=== PATIENT | male | born 1990 | race Two or more races ===

== ENCOUNTER 2021-08-07 09:13 | Outpatient (CLI) | payer SELFPAY ==
[2021-08-07 15:32] LABS: BASOPHILS % (AUTO) 0.5 %; EOSINOPHILS # (AUTO) 0.2 10^3/uL (0.0-0.7); EOSINOPHILS % (AUTO) 3.2 %; HCT - HEMATOCRIT 46.2 % (42.0-52.0); HGB - HEMOGLOBIN 15.2 g/dL (14.0-18.0); LYMPHOCYTES # (AUTO) 1.7 10^3/uL (1.5-3.5); LYMPHOCYTES % (AUTO) 30.9 %; MEAN CORPUSCULAR HEMOGLOBIN 28.6 pg (27.0-31.0); MEAN CORPUSCULAR HGB CONC 32.9 g/dL (32.0-36.0); MONOCYTES # (AUTO) 0.3 10^3/uL (0.0-1.0); MONOCYTES % (AUTO) 5.4 %; NEUTROPHILS # (AUTO) 3.3 10^3/uL (1.5-6.6); NEUTROPHILS % (AUTO) 59.8 %; PLT - PLATELET COUNT 170 10^3/uL (130-450); RED BLOOD COUNT 5.31 10^6/uL (4.70-6.10); RED CELL DISTRIBUTION WIDTH 13.4 % (12.0-15.0); WHITE BLOOD COUNT 5.6 x10^3/uL (4.8-10.8)
[2021-08-07 15:51] LABS: ALBUMIN 4.7 g/dL (3.2-5.5); ALBUMIN/GLOBULIN RATIO 1.5 (1.0-2.2); BILIRUBIN,TOTAL 1.1 mg/dL (0.2-1.0); CALCIUM 9.5 mg/dL (8.5-10.3); CREATININE 0.8 mg/dL (0.6-1.2); POTASSIUM 3.9 mmol/L (3.5-5.0); TOTAL PROTEIN 7.8 g/dL (6.7-8.2)
[2021-08-07 16:08] LABS: THYROID STIMULATING HORMONE 1.14 uIU/mL (0.34-5.60)
[2021-08-07 18:42] LABS: ESTIMATED AVERAGE GLUCOSE 108 mg/dL (70-100); HEMOGLOBIN A1c% 5.4 % (4.27-6.07)
== END 2021-08-07 09:14 | disposition home or self-care (01) ==
LOC: LAB.S 09:13
PROVIDERS: ATTEND Naturopath
DX: F41.9 Anxiety disorder, unspecified (principal); R13.10 Dysphagia, unspecified; E05.90 Thyrotoxicosis, unspecified without thyrotoxic crisis or storm; E16.2 Hypoglycemia, unspecified
CPT/HCPCS: 36415; 80053; 83036; 84443; 85025

== ENCOUNTER 2021-08-10 13:54 | Outpatient (CLI) | payer SELFPAY ==
[2021-08-16 11:49] LABS: PATHOLOGIST SLIDE COMMENTS SEE SEPARATE REPORT
== END 2021-08-10 13:55 | disposition home or self-care (01) ==
LOC: LAB.S 13:54
PROVIDERS: ATTEND Naturopath
DX: R13.10 Dysphagia, unspecified (principal); E05.90 Thyrotoxicosis, unspecified without thyrotoxic crisis or storm; E16.2 Hypoglycemia, unspecified
CPT/HCPCS: 36415; 81599; 83615; 83625; 84439

== ENCOUNTER 2022-03-15 11:54 | Emergency (ER) | payer SELFPAY ==
[2022-03-15 12:24] LABS: BASOPHILS % (AUTO) 0.4 %; EOSINOPHILS # (AUTO) 0.2 10^3/uL (0.0-0.7); EOSINOPHILS % (AUTO) 2.4 %; HCT - HEMATOCRIT 47.1 % (42.0-52.0); HGB - HEMOGLOBIN 15.8 g/dL (14.0-18.0); LYMPHOCYTES # (AUTO) 1.5 10^3/uL (1.5-3.5); MEAN CORPUSCULAR HGB CONC 33.5 g/dL (32.0-36.0); MEAN CORPUSCULAR VOLUME 83.5 fL (80.0-94.0); MEAN PLATELET VOLUME 12.8 fL (7.4-11.4); MONOCYTES # (AUTO) 0.3 10^3/uL (0.0-1.0); MONOCYTES % (AUTO) 4.8 %; NEUTROPHILS # (AUTO) 4.9 10^3/uL (1.5-6.6); NEUTROPHILS % (AUTO) 70.1 %; PLT - PLATELET COUNT 173 10^3/uL (130-450); RED BLOOD COUNT 5.64 10^6/uL (4.70-6.10); RED CELL DISTRIBUTION WIDTH 12.8 % (12.0-15.0); WHITE BLOOD COUNT 6.9 x10^3/uL (4.8-10.8)
--- NOTE | 2022-03-15 12:28 | ED Physician Documentation ---
PD HPI ABD PAIN - Stated complaint Stated Complaint: ABD/THROAT PX/NAUSEA - Chief complaint Chief Complaint: Abd Pain - History obtained from History obtained from: Patient - History of Present Illness Timing - onset: How many months ago (The patient has had couple of months of intermittent upper abdominal pain worse with eating. More notable with fatty foods. 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 He states he had 2 weeks of treatment but not sure what it was. Continues with epigastric pain) Timing - details: Gradual onset, Still present (worse the past week.), Waxing and waning Quality: Aching, Pain, Other (burning) Location: Epigastric Radiation: Chest (lower substernal) Worsened by: Eating (yves fatty foods and also spicy foods.) Associated symptoms: Nausea, Loss of appetite. No: Fever, Vomiting, Hematemesis, Constipation, Melena, Weight loss Similar symptoms before: Has not had sx before Recently seen: Clinic (seen by ? naturopathic provider and Dx with sounds like gastritis and possible h.pylori.) Review of Systems Constitutional: denies: Fever, Chills Nose: denies: Rhinorrhea / runny nose, Congestion Throat: denies: Sore throat Respiratory: denies: Cough GI: reports: Abdominal Pain, Nausea. denies: Vomiting, Diarrhea, Bloody / black stool : denies: Dysuria, Frequency Neurologic: denies: Generalized weakness Psychiatric: reports: Anxiety. denies: Depressed Endocrine: denies: Weight loss Immunocompromised: denies: Immunocompromised PD PAST MEDICAL HISTORY - Past Medical History Cardiovascular: None Respiratory: None Endocrine/Autoimmune: None - Present Medications Home Medications: Ambulatory Orders Medication Instructions Recorded Confirmed HYDROcod/ACETAM 5/325 [[place] 5/325] 1 ea PO Q6H PRN #15 tablet 03/15/22 Ondansetron Odt [Zofran] 4 mg TL Q6H PRN #15 tablet 03/15/22 Pantoprazole [Protonix] 40 mg PO DAILY 30 Days #30 tablet 03/15/22 Sucralfate [Carafate] 1 gm PO ACHS #28 tablet 03/15/22 - Allergies Allergies/Adverse Reactions: Allergies Allergy/AdvReac Type Severity Reaction Status Date / Time No Known Drug Allergies Allergy Verified 03/15/22 12:07 PD ED PE NORMAL - Vitals Vital signs reviewed: Yes - General General: Alert and oriented X 3, No acute distress, Well developed/nourished - HEENT HEENT: Pharynx benign - Neck Neck: Supple, no meningeal sign, No adenopathy - Cardiac Cardiac: RRR, No murmur - Respiratory Respiratory: No respiratory distress, Clear bilaterally - Abdomen Abdomen: Normal bowel sounds, Soft, Non distended, No organomegaly, Other (moderate tender epigastric to RUQ without guarding nor percussion tenderness. Lower abd not tender. ) - Derm Derm: Normal color, Warm and dry - Neuro Neuro: Alert and oriented X 3, No motor deficit, Normal speech Results - Vitals Vitals: Vital Signs - 24 hr 03/15/22 03/15/22 03/15/22 12:08 13:33 15:07 Temperature 36.5 C 37.4 C Heart Rate 90 90 82 Respiratory 16 16 16 Rate Blood Pressure 132/71 H 127/77 123/77 O2 Saturation 98 98 97 Oxygen O2 Source Room air - Labs Labs: Laboratory Tests 03/15/22 03/15/22 03/15/22 12:18 12:18 12:22 WBC 6.9 RBC 5.64 Hgb 15.8 Hct 47.1 MCV 83.5 MCH 28.0 MCHC 33.5 RDW 12.8 Plt Count 173 MPV 12.8 H Neut # (Auto) 4.9 Lymph # (Auto) 1.5 [place] # (Auto) 0.3 Eos # (Auto) 0.2 Baso # (Auto) 0.0 Absolute Nucleated RBC 0.00 Nucleated RBC % 0.0 Sodium 137 Potassium 3.5 Chloride 103 Carbon Dioxide 24 Anion Gap 10.0 BUN 12 Creatinine 0.8 Estimated GFR (MDRD) 113 Glucose 115 H Calcium 9.4 Total Bilirubin 1.1 H AST 33 ALT 59 Alkaline Phosphatase 78 Total Protein 8.4 H Albumin 5.1 Globulin 3.3 Albumin/Globulin Ratio 1.5 Lipase 28 Urine Color YELLOW Urine Clarity CLEAR Urine pH 6.0 Ur Specific [place] 1.020 Urine Protein NEGATIVE Urine Glucose (UA) NEGATIVE Urine Ketones 40 H Urine Occult Blood TRACE-INTA Urine Nitrite NEGATIVE Urine Bilirubin NEGATIVE Urine Urobilinogen 0.2 (NORMAL) Ur Leukocyte Esterase NEGATIVE Ur Microscopic Review NOT INDICATED Urine Culture Comments NOT INDICATED - Rads (name of study) upper abd U/S Radiology: Prelim report reviewed (normal gallbladder (some polyps incidental), no acute process. ), See rad report PD MEDICAL DECISION MAKING - ED course Complexity details: reviewed results (normal glalbladder and labs. Presume gastritis/ulcer. Consider h.pylori. He has appt with GI in few weeks. He did not have to have BM in ER, so did not get stool test here. ), considered differential (Sounds like gastritis and reflux although consider pancreatic or gallbladder. Can get labs and ultrasound. Blood test for presumed H. pylori do would be inaccurate at this point since previously positive. Would need to do stool test or breath test.), d/w patient Departure - Departure Disposition: Home, Self Care Clinical Impression: Epigastric abdominal pain Gastritis Qualifiers: Gastritis type: unspecified gastritis Chronicity: acute Gastritis bleeding: without bleeding Qualified Code(s): K29.00 - Acute gastritis without bleeding Condition: Stable Record reviewed to determine appropriate education?: Yes Instructions: ED PUD Vs Gastritis Prescriptions: Sucralfate [Carafate] 1 gm PO ACHS #28 tablet HYDROcod/ACETAM 5/325 [[place] 5/325] 1 ea PO Q6H PRN #15 tablet PRN Reason: Pain Pantoprazole [Protonix] 40 mg PO DAILY 30 Days #30 tablet Ondansetron Odt [Zofran] 4 mg TL Q6H PRN #15 tablet PRN Reason: Nausea / Vomiting Comments: [place] food and avoid spicy and greasy and fatty foods. Follow-up at the [facility] as planned in a couple of weeks. You may want to bring a stool sample with you (obtained the day or 2 before) in case they would like to test for H. pylori. Your ultrasound and blood tests are normal without any signs of liver or pancreas or gallbladder problems. Your symptoms therefore sound most likely ulcer/gastritis. I would suggest treating with an acid reducing medicine such as pantoprazole daily. Coating the stomach with an protectant frequently for the first week is also good and I prescribed sacral fate for that. You can also use antacid such as Maalox or Mylanta and combine it with some of the lidocaine to help with pain. Add Tylenol or hydrocodone if needed for pain beyond that. Avoid aspirin ibuprofen or naproxen as these can further irritate your stomach. I sent your prescriptions to [facility] in [place]. I am prescribing a short course of narcotic pain medication for you. These are potentially dangerous and addictive medications that should be used carefully. These medications may constipate you. Take an [id number] stool softener such as docusate twice daily with plenty of water while taking these medications. If you go 24 hours without a bowel movement, take [id number] MiraLAX, per package instructions. Do not drink or drive while taking these medications. If you received narcotic or sedating medications while in the emergency department do not drive for 24 hours. Store this medication in a safe, secure place and out of reach of children. It is a violation of federal law to give or sell this medication to another person or to use in a manner other than prescribed. The ED will not refill narcotic prescriptions, including prescriptions lost or stolen. You can dispose of unwanted medications at the [facility] office or at several pharmacies such as [facility]. Discharge Date/Time: 03/15/22 15:08
[2022-03-15 12:36] LABS: ALBUMIN 5.1 g/dL (3.2-5.5); ALBUMIN/GLOBULIN RATIO 1.5 (1.0-2.2); BILIRUBIN,TOTAL 1.1 mg/dL (0.2-1.0); CALCIUM 9.4 mg/dL (8.5-10.3); CREATININE 0.8 mg/dL (0.6-1.2); POTASSIUM 3.5 mmol/L (3.5-5.0); TOTAL PROTEIN 8.4 g/dL (6.7-8.2)
[2022-03-15 12:44] LABS: BILIRUBIN,URINE NEGATIVE (NEGATIVE); GLUCOSE, URINE (UA) NEGATIVE (NEGATIVE); KETONES,URINE (UA) 40 mg/dL (NEGATIVE); LEUKOCYTE ESTERASE, URINE NEGATIVE (NEGATIVE); NITRITE,URINE NEGATIVE (NEGATIVE); OCCULT BLOOD,URINE TRACE-INTA (NEGATIVE); PROTEIN,URINE NEGATIVE (NEGATIVE); UROBILINOGEN,URINE 0.2 (NORMAL) E.U./dL (NORMAL)
[2022-03-15 12:45] LABS: CLARITY,URINE CLEAR (CLEAR)
[2022-03-15] MEDS ORDERED: PANTOPRAZOLE 40 MG TABLET PO STA (12:48)
[2022-03-15] MEDS ORDERED: MAG HYDROX/AL HYDROX/SIMETH 30 ML UDC PO STA (12:48)
[2022-03-15] MEDS ORDERED: LIDOCAINE VISCOUS 2% 15 ML UDC MM STA (12:48)
[2022-03-15] MEDS ORDERED: ONDANSETRON ODT 4 MG TABLET TL STA (12:50)
[2022-03-15] MEDS ORDERED: HYDROcod/ACETAM 5/325 MG TABLET PO STA (14:56)
[2022-03-15 15:08] VITALS: BP 123/77
--- NOTE | 2022-03-15 15:20 | Ultrasound Report ---
PROCEDURE: Abdomen Limited INDICATIONS: upper abd pain with eating weeks TECHNIQUE: Real-time scanning was performed of the abdominal and retroperitoneal organs, with image documentatio n. COMPARISON: None. FINDINGS: Liver: Liver is normal in size and homogeneous in echotexture. A 6 mm hepatic cyst is noted. Gallbladder: The gallbladder wall measures 1.9 mm in diameter. 2 gallbladder polyps are visualized, o ne of which measures 3 mm in diameter and one of which measures 5 mm in diameter. No stones, sludge, pericholecystic fluid, or sonographic Broderick sign. Biliary ducts: Intrahepatic bile ducts are non-dilated. Extrahepatic bile duct caliber measures 3.1 mm. Normal is 6-7 mm or less in diameter, or 10 mm or less post-cholecystectomy. Pancreas: Pancreas is not visualized. Kidneys: Right kidney measures 10.7 cm long. No hydronephrosis or nephrolithiasis. No solid masses . IMPRESSION: 1. No cholelithiasis or findings to suggest choledocholithiasis or acute cholecystitis. 2. 3 and 5 mm gallbladder polyps. For polyps under 6 or 7 mm, no further follow-up recommended. Reviewed by: Nancy Ho MD on 03/15/2022 3:19 PM PDT Approved by: Nancy Ho MD on 03/15/2022 3:19 PM PDT Station ID: [id number]
== END 2022-03-15 15:08 | disposition home or self-care (01) ==
LOC: ED 11:54
DX: K29.00 Acute gastritis without bleeding (principal); K82.4 Cholesterolosis of gallbladder
CPT/HCPCS: 36415; 76705; 80053; 81003; 83690; 85025; 99284; A9270; Q0162; 81001; 87086